=== PATIENT | female | born 1955 | race Two or more races ===

== ENCOUNTER → 2024-08-17 | Outpatient (CLI) | payer MEDICARE, SELFPAY ==
--- NOTE | 2024-08-17 11:45 | XR_ITS ---
Examination: Screening digital mammography, bilateral Computer aided detection 3-D breast Tomosynthesis, bilateral Date and time of exam: August 17, 2024 1152 hours Compared to mammograms dating to June 24, 2017 Indication: Screening Technique: Nonmagnified MLO, CC views of the breasts to been obtained, reconstructed from 3-D Tomosynthesis images. R2 computer aided detection program utilized for evaluation of suspicious masses and/or abnormal calcifications. 3-D Tomosynthesis images obtained. Findings: The breasts are heterogeneously dense, which may obscure small masses Benign calcifications No interval suspicious masses Impression: BI-RADS category II: Benign Findings. Recommend 1 year follow-up mammogram. Given the patient's finding of persistent bilateral breast pain several years, recommend bilateral breast sonography follow-up
== END | disposition home or self-care (01) ==
LOC: CDIM 11:43
PROVIDERS: Referring Provider Family Medicine; Visit Provider Family Medicine
DX: Z12.31 Encounter for screening mammogram for malignant neoplasm of breast (principal); R92.323 Mammographic fibroglandular density, bilateral breasts
CPT/HCPCS: 77063; 77067

== ENCOUNTER → 2024-09-21 | Outpatient (CLI) | payer MEDICARE, SELFPAY ==
--- NOTE | 2024-09-21 | XR_ITS ---
Examination:Left hip AP, lateral, AP pelvis 3 views Technique: Hip AP lateral, AP pelvis, 3 views Exam date and time:September 21, 2024 1219 hours Comparison March 16, 2023 FINDINGS: Chronic appearing left subcapital hip fracture but clinical correlation advised Moderate left hip osteoarthritis Right hip bones of the pelvis intact IMPRESSION: Recommend CT scan left hip follow-up to assess acuity of the subcapital hip fracture..
== END | disposition home or self-care (01) ==
PROVIDERS: PCP Family Medicine; Referring Provider Physical Medicine & Rehabilitation Pain Medicine; Visit Provider Physical Medicine & Rehabilitation Pain Medicine
DX: M25.552 Pain in left hip (principal); M25.551 Pain in right hip
CPT/HCPCS: 73502

== ENCOUNTER → 2024-10-02 | Outpatient (CLI) | payer MEDICARE, SELFPAY ==
--- NOTE | 2024-10-02 11:30 | XR_ITS ---
Examination: Breast ultrasound complete, bilateral Date and time of exam: October 02, 2024 1134 hours INDICATIONS: Bilateral breast pain several years, family history, sister, breast cancer Technique: Real-time grayscale ultrasonographic imaging bilateral breasts, including all 4 quadrants as well as nipple retroareolar and axillary regions. Findings: Sonographic images right breast 6:00 cyst 3 x 5 mm 9:00 nodule circumscribed 4 x 4 millimeter Sonographic images left breast 3:00 nodule circumscribed 2 x 3 mm 2:00 cyst 3 x 3 mm Retroareolar circumscribed calcifications 3 x 6 mm IMPRESSION: BI-RADS Category 3: Probably benign findings Recommend 1 additional 6 month bilateral breast sonography to document stability of findings described above
== END | disposition home or self-care (01) ==
LOC: CDIM 11:00
PROVIDERS: PCP Family Medicine; Referring Provider Family Medicine; Visit Provider Family Medicine
DX: R92.8 Other abnormal and inconclusive findings on diagnostic imaging of breast (principal)
CPT/HCPCS: 76641

== ENCOUNTER → 2024-12-14 | Outpatient (CLI) | payer MEDICARE, SELFPAY ==
--- NOTE | 2024-12-14 07:00 | XR_ITS ---
Exam: MRI knee without contrast, left Date and time of exam: December 14, 2024, 0708 hours INDICATIONS: Posterior left knee pain with bending 4 months after fall injury Technique: Multiple axial, coronal, and sagittal sections on the knee have been obtained. T2-Weighted sagittal, fat-suppressed images, TR 3,500, TE 62, T2 weighted coronal fat-saturated images, TR 3,500, TE 62 Proton density sagittal sections, TR 1800, TE 31. T-1 weighted coronal images, TR 524, TE 13.0 Findings: Medial meniscus anterior horn intact. Medial meniscus, body suspicious for mild meniscocapsular separation. Posterior horn medial meniscus meniscocapsular separation with peripheral horizontal linear tear, sagittal image 5. Lateral meniscus anterior horn is intact Lateral meniscus, body is intact Posterior horn lateral meniscus is intact Anterior cruciate ligament mild strain Posterior cruciate ligament mild strain Knee effusion is small. Quadriceps and patellar tendons appear intact. There is no evidence of tendinosis. Inflammatory change or fracture of Hoffa's fat pad is not seen. Medial patellar facet demonstrates moderate thinning. Lateral patellar facet cartilage demonstrates moderate thinning. Trochlear cartilage demonstrates moderate thinning. Marrow signal adequate. Medial collateral ligament appears intact. . Illiotibial band and fibular collateral ligament are intact. Biceps femoris tendons appear intact. Medial femoral condylar articular cartilage demonstrates moderate thinning. Lateral femoral condylar articular cartilage demonstrates moderate thinning. Tibial plateau cartilage demonstrates moderate thinning. Impression: Suspicious for meniscocapsular separation body and posterior horn medial meniscus Small peripheral horizontal linear tear posterior horn medial meniscus Mild strain anterior and posterior cruciate ligaments
== END | disposition home or self-care (01) ==
LOC: SMRI 06:42
PROVIDERS: PCP Family Medicine; Referring Provider Family Medicine; Visit Provider Family Medicine
DX: S83.242A Other tear of medial meniscus, current injury, left knee, initial encounter (principal); W19.XXXA Unspecified fall, initial encounter
CPT/HCPCS: 73721

== ENCOUNTER → 2025-01-08 | Outpatient (CLI) | payer MEDICARE, SELFPAY ==
--- NOTE | 2025-01-08 13:00 | XR_ITS ---
Examination: CT abdomen and pelvis without contrast. Coronal 3-D reconstructions. Sagittal 2-D reconstructions. Date and time of exam: January 08, 2025, 1304 hours, comparison November 27, 2020 INDICATIONS: Left-sided flank pain beginning 3 months ago CTDI: vol (mGy): 5.17 DLP: (mGycm): 259 Technique: Axial images of the abdomen have been obtained, 3 mm slice thickness Intravenous contrast material has not been administered. Low dose protocols were performed. One or more of the following dose reduction techniques were used; automated exposure control, adjustment of the mA and/or KV according to patient size, use of iterative reconstruction technique. Findings: No focal liver or splenic lesions No gallstones No pancreatic or adrenal mass No renal or ureteral calculi, no hydronephrosis Aorta normal size Diffuse colonic diverticulosis No pericecal inflammatory change No diverticulitis Pelvic phleboliths Bladder intact Absent uterus Moderate osteopenia IMPRESSION: No renal or ureteral calculi, no hydronephrosis Diffuse colonic diverticulosis, no diverticulitis
== END | disposition home or self-care (01) ==
LOC: CCTX 12:49
PROVIDERS: PCP Family Medicine; Referring Provider Family Medicine; Visit Provider Family Medicine
DX: K57.30 Diverticulosis of large intestine without perforation or abscess without bleeding (principal)
CPT/HCPCS: 74176

== ENCOUNTER 2025-02-12 08:58 | Outpatient (AMB) | payer MEDICARE, SELFPAY ==
--- NOTE | 2025-02-12 09:13 | PD.ORTHCLVIS ---
Vital signs 02/12/25 09:22 Height 1.52 m Height Method Measured Weight 51.454 kg Weight Measurement Method Standing Scale BMI 22.1 BP 122/73 Blood Pressure Source Automatic Cuff Blood Pressure Location Left Upper Arm Position Sitting Respiration 18 Pulse 74 Pulse Source Monitor Temp 97.1 F Temp Source Temporal Artery Scan Pulse Oximetry (%) 96 Oxygen Delivery Method Room Air Med/Allergies Allergies & Medications Allergies Penicillins Allergy (Unknown, Verified 02/12/25 09:24) Medication Reconciliation metformin 1,000 mg tablet (Glucophage) 1,000 mg PO BID #0 tabs 09/20/13 [History Confirmed 02/12/25] omega-3 acid ethyl esters 1 gram capsule (Lovaza) 2 gm PO QDAY ##0 09/20/13 [History Confirmed 02/12/25] saxagliptin 5 mg tablet (Onglyza) 5 mg PO QDAY #0 tabs 09/20/13 [History Confirmed 02/12/25] estradiol 0.01% (0.1 mg/gram) vaginal cream (Estrace) 2 gm vaginal DIRECTED 12/04/18 [History Confirmed 02/12/25] ibandronate 150 mg tablet (Boniva) 150 mg PO QDAY 12/04/18 [History Confirmed 02/12/25] olmesartan 20 mg tablet (Benicar) 20 mg PO QDAY 12/04/18 [History Confirmed 02/12/25] timolol maleate 0.5 % eye drops 1 drop ophthalmic (eye) QDAY 12/04/18 [History Confirmed 02/12/25] glimepiride 1 mg tablet 1 mg PO QDAY 11/27/20 [History Confirmed 02/12/25] meloxicam 15 mg tablet 15 mg PO DAILY 11/27/20 [History Confirmed 02/12/25] metoprolol succinate 25 mg tablet,extended release 24 hr 25 mg PO QDAY 11/27/20 [History Confirmed 02/12/25] rosuvastatin 10 mg tablet 10 mg PO DAILY 11/27/20 [History Confirmed 02/12/25] Exam Exam Patient is in no acute distress and is cooperative with the examination today. Breathing is nonlabored. In no respiratory distress. Bilateral extremities were evaluated and demonstrates sensation intact to light touch. Palpable pedal pulses are present. No significant edema is present. Bilateral hips were examined. The patient has no pain with log roll of the hips. Internal rotation to 30 degrees and external rotation to 30 degrees is painless. Negative FADIR. The left knee was examined. The left knee is in varus alignment. Range of motion from 0-115 degrees. Knee is stable to varus and valgus as well as AP translation with <5mm. Patient has a negative McMurrays. There is no pain with patellofemoral compression and no crepitus noted. The knee is tender to palpation medially. The right knee was also examined. The right knee is in varus alignment. Range of motion from 0-120 degrees. Knee is stable to varus and valgus as well as AP translation with >5mm. Patient has a negative McMurrays. There is no pain with patellofemoral compression and no crepitus noted. The knee is tender to palpation medially. An MRI demonstrates a posterior horn medial meniscus tear. Assessment and Plan Problem List (1) Degenerative arthritis of knee, bilateral: Status: Acute Plan: Patient is a 69-year-old female with bilateral knee pain worse on the right. I would like to get x-rays of the right knee as we do not have them. We discussed different treatment options depending on what that shows. We will likely do cortisone injections at the next visit Advanced Care Planning Discussion Advance care planning discussed with:: patient Office Procedures GNS Level of Care Nursing/Assessment Patient Status: Initial/New Patient Nursing Assessment/Reassesment: Medication Reconciliation, Update PMH in EMR and Vital Signs Coordination of Care: Complex Care and Chronic Disease 1-5, Education Complex Pt/Fam, Consent,records obtained, informed consent, 1 Ins Authorization, Lab and Imaging orders, Results/Orders obtained and Staff clarify orders New Patient Charge New Patient Point Assignment: 1124 New Patient Point 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 Level 4 ([id number]) MA Intake Visit Data Collection New Patient or Established: New Patient (never been to [facility]) Reason for Visit:: LEFT KNEE MENISCUS Seen by Clinical Staff ONLY (RN/MA): No PCP or OBGYN visit in last 3 months: Yes Hx Now: No Do You Feel Safe at Home: Yes Authorities Contacted: N/A Questionairres Past Medical History Past Medical History Have you ever been diagnosed with any of the following: Neurological Problems Seizures: No Cardiology Problems Congestive Heart Failure: No Hypertension: Yes Respiratory Problems Chronic Obstructive Pulmonary Disease (COPD): No Tuberculosis: Yes Stomache/Intestinal Problems Gastroesophageal Reflux Disease: Yes Genital/Urinary Problems Renal Disease: No Musculoskeletal Problems Arthritis: Yes Osteoporosis: Yes Head,Eye,Nose,Throat Problems Glaucoma: Yes Endocrine Problems Diabetes Mellitus Type 1: No Diabetes Mellitus Type 2: Yes Other Problems Falls: No Blood Transfusions: No Blood Transfusion Reaction: No Anesthesia Reactions: No Surgical History Hysterectomy: Yes Subjective Visit Visit for: new patient and knee Immunization / Flu Flu Vaccine in the Last 12 Months: Yes Flu Vaccine Exclusion Criteria: Already Received History of Present Illness Chief complaint: LEFT KNEE MENISCUS Date of injury / onset of symptoms: 07/2024 Patient is a 69-year-old female with bilateral knee pain worse on the left. This was magnified after a fall 5 months ago. She reports the right knee pain is worse. She has not had any conservative treatment including any injections or anti-inflammatories. She has not needed any thing anti-inflammatories. He has not had any injections and is using no assistive device Personal History Occupation: RETIRED Pain Pain level (0-10): 6 Pain duration: WITH MOVEMENT Pain location: inside (medial) and outside (lateral) Pain quality: sharp, aching and burning Pain timing: night, increases with activity and stairs Associated signs & symptoms: none Ambulatory data Ambulatory device: none Treatments Number of previous injections: 0 Improvement with previous injections: No Number of Physical Therapy sessions: 0 Improvement with PT: No Improvement with NSAIDS: no Review of Systems Review of Systems: All systems negative unless otherwise noted in HPI.
[2025-02-12 09:22] VITALS: BP 122/73; PULSE 74; RESP 18; TEMP 36.2; O2SAT 96; BMI 22.1
--- NOTE | 2025-02-12 09:28 | XR_ITS ---
EXAMINATION: Bilateral knees 2 views Right lateral knee left lateral knee 2 views Bilateral Axuni single view TECHNIQUE: Bilateral AP knees standing single view, bilateral PA knees standing single view flexion Right lateral knee left lateral knee standing 2 views Bilateral axial knees single view total 5 views Date and time: February 12, 2025, 0953 hours INDICATIONS: Patient fell 6 months ago with left knee pain and swelling FINDINGS: Moderate osteopenia Mild narrowing medial and lateral joint spaces No fractures or dislocations Intact osseous structures IMPRESSION: Mild narrowing medial lateral joint spaces
== END 2025-02-12 09:30 | disposition home or self-care (01) ==
PROVIDERS: PCP Family Medicine; Referring Provider Family Medicine; Supervising Provider Orthopaedic Surgery Adult Reconstructive Orthopaedic Surgery; Visit Provider Orthopaedic Surgery Adult Reconstructive Orthopaedic Surgery
DX: M17.0 Bilateral primary osteoarthritis of knee (principal); M25.562 Pain in left knee; M25.561 Pain in right knee; I10 Essential (primary) hypertension; E11.9 Type 2 diabetes mellitus without complications; Z79.84 Long term (current) use of oral hypoglycemic drugs
CPT/HCPCS: 73564; 99204; G0463